=== PATIENT | female | born 1990 | race Two or more races ===

== ENCOUNTER 2019-02-02 16:58 | Emergency (ER) | payer OTHER ==
[~2019-02-02] VITALS: Ht 170.2 cm; Wt 111.1 kg
[2019-02-03] MEDS ORDERED: cefTRIAXone SOD 1,000 MG VL IM ONE (01:45)
[2019-02-03] MEDS ORDERED: ACETAMINOPHEN/CODEINE#3 (300/30mg) TAB PO ONE (01:45)
[2019-02-03 01:48] VITALS: BP 116/77
== END 2019-02-03 02:26 | disposition home or self-care (01) ==
LOC: ER 17:08
DX: J02.9 Acute pharyngitis, unspecified (principal)
CPT/HCPCS: 96372; 99283; J0696